=== PATIENT | female | born 1955 | race Caucasian/White ===

== ENCOUNTER 2019-10-22 17:46 | Emergency (ER) | payer OTHER ==
[2019-10-22] MEDS ORDERED: NA CHLORIDE 0.9% 1,000 ML ONE (18:51)
[2019-10-22] MEDS ORDERED: ACETAMINOPHEN 500 MG TAB ONE (18:51)
[2019-10-22 18:54] LABS: Absolute Lymphocytes (CBC) 0.5 K/uL (0.7-4.9); Basophils % 0.1 % (0-1.3); Hematocrit 35.2 % (36.0-45.0); MPV 9.6 fL (7.6-11.3); RBC Red Blood Cell Count 3.86 M/uL (3.86-4.86)
[2019-10-22 19:21] LABS: ALT/SGPT 23 U/L (12-78); AST/SGOT 23 U/L (15-37); Albumin 3.5 g/dL (3.4-5.0); Alkaline Phosphatase 68 U/L (45-117); Amylase Level 32 U/L (25-115); BUN Blood Urea Nitrogen 11 mg/dL (7-18); Bicarbonate 24 mmol/L (21-32); Bilirubin Direct 0.2 mg/dL (0-0.2); CKMB Creatine Kinase MB < 1.0 ng/mL (0.3-3.6); Creatine Phosphokinase 473 U/L (26-192); Glucose Level 129 mg/dL (74-106); Lipase 69 U/L (73-393); Potassium 3.6 mmol/L (3.5-5.1); Sodium Level 136 mmol/L (136-145); Troponin (Emerg Dept Use Only) < 0.02 ng/mL (0.0-0.045)
[2019-10-22 19:23] LABS: Protime INR 1.08
--- NOTE | 2019-10-22 19:45 | RAD REPORT ---
EXAM DESCRIPTION: RAD - Chest Single View - 10/22/2019 7:30 pm CLINICAL HISTORY: Fever;Cough COMPARISON: Chest exam October 2009 TECHNIQUE: AP portable chest image was obtained 10/22/2019 7:30 pm . FINDINGS: Medial right base patchy opacification is present. This was not present on the far remote imaging study. Lung hanson are otherwise clear. No failure or volume overload. Heart and vasculature are normal. No measurable pleural effusion and no pneumothorax. No acute bony abnormality seen. No ac sarah aortic findings suspected. IMPRESSION: Small medial right lung base pneumonia.
[2019-10-22] MEDS ORDERED: CEFTRIAXONE/SWI 1gm 1 GM/10 ML SYR ONE (19:55)
[2019-10-22] MEDS ORDERED: NA CHLORIDE 0.9% 250 ML ONE (19:55)
[2019-10-22] MEDS ORDERED: AZITHROMYCIN 500 MG INJ IVPB ONE (19:55)
[2019-10-22 20:00] LABS: Blood Morphology Comment NOTED (NOT SEEN); Platelet Estimate ADEQ; Urine White Blood Cell Casts OK
[2019-10-22 20:22] LABS: Urine Blood NEGATIVE (NEG); Urine Glucose NEGATIVE (NEG); Urine Protein NEGATIVE (NEG)
[2019-10-22 20:29] LABS: Urine Bacteria 20-50 /HPF (<20); Urine RBC <5 /HPF (NONE SEEN)
[2019-10-22 20:30] LABS: Urine Culture Reflex Order REFLEXED
--- NOTE | 2019-10-22 22:09 | ER ---
Nurse's Notes [facility] Name: Ladonna Campos Age: 64 yrs Sex: Female : 1955 Arrival Date: 10/22/2019 Time: 17:47 Bed 28 Private MD: Diagnosis: Pneumonia in diseases classified elsewhere;Fever, unspecified Presentation: 10/21 17:54 Acuity: FAITH 2 ss 18:07 Chief complaint: Patient states: Cough/congestion for 2 weeks, fever today. Came back ll1 from cruise to [place] Sep 14. came back with a cough. She began having cough for 2 weeks. Took almost all her amoxicillin. No known Jacinto virus contact. Coronavirus screen: The patient HAS traveled to a country currently being monitored by the CDC in the past 14 days. The patient DOES HAVE a fever and/or cough Mask placed on patient and transported to negative pressure isolation room. Ebola Screen: Patient reports travel to Ebola-affected area in the 21 days before illness onset. Initial Sepsis Screen: Does the patient meet any 2 criteria? Temp <36.0*C (96.8*F)) or > 38.3*C (100.9*F). HR > 90 bpm. Yes Does the patient have a suspected source of infection? Yes: Productive cough/pneumonia. Risk Assessment: Do you want to hurt yourself or someone else? Patient reports no desire to harm self or others. 18:07 Method Of Arrival: EMS 1 18:07 Acuity: FAITH 2 1 18:44 Onset of symptoms was October 09, 2019. [facility] Triage Assessment: 18:26 General: Appears uncomfortable, Behavior is calm, cooperative. Pain: Complains of pain [facility] in head Pain currently is 8 out of 10 on a pain scale. Quality of pain is described as aching, Pain began gradually. EENT: No deficits noted. Neuro: No deficits noted. Cardiovascular: No deficits noted. Respiratory: Airway is patent Trachea midline Respiratory effort is even, unlabored, Respiratory pattern is regular, symmetrical, Sputum is thick, yellow Breath sounds are clear in left upper lobe and left lower lobe Breath sounds are coarse in right posterior upper lobe and right posterior middle lobe Onset: The symptoms/episode began/occurred 2 weeks ago, the patient has moderate shortness of breath. GI: No deficits noted. Historical: - Allergies: 18:18 NKDA; ll1 18:18 lobster; ll1 - PMHx: 18:18 None; ll1 - PSHx: 18:18 ; ll1 - Immunization history:: Last tetanus immunization: unknown, Flu vaccine is not up to date. - Social history:: Patient/guardian denies using alcohol, street drugs, tobacco products, Smoking status: Patient denies any tobacco usage or history of. Screenin:22 Abuse screen: Denies threats or abuse. Nutritional screening: No deficits noted. ll1 Tuberculosis screening: No symptoms or risk factors identified. Fall Risk IV access (20 points). Ambulatory Aid- None/Bed Rest/Nurse Assist (0 pts). Gait- Weak (10 pts.). Total Garcia Fall Scale indicates Low Risk Score (25-44 pts). Fall prevention measures have been instituted. Side Rails Up X 2 As available Patient and Family Educated on Fall Prevention Program and strategies. Assessment: 18:46 General: Appears in no apparent distress. Behavior is calm, cooperative, see triage ll1 assessment for further details. 19:45 Reassessment: No changes from previously documented assessment. Patient and/or family ll1 updated on plan of care and expected duration. Pain level reassessed. Patient is alert, oriented x 3, equal unlabored respirations, skin warm/dry/pink. 20:45 Reassessment: No changes from previously documented assessment. Patient and/or family ll1 updated on plan of care and expected duration. Pain level reassessed. Patient is alert, oriented x 3, equal unlabored respirations, skin warm/dry/pink. 21:45 Reassessment: No changes from previously documented assessment. Patient and/or family ll1 updated on plan of care and expected duration. Pain level reassessed. Patient is alert, oriented x 3, equal unlabored respirations, skin warm/dry/pink. Vital Signs: 18:07 Height 5 ft. 8 in. (172.72 cm); Pain 8/10; ll1 18:07 BP 146 / 73; Pulse 115; Resp 18; Temp 102.0; Pulse Ox 98% ; Weight 84.82 kg; Height 5 ll1 ft. 8 in. (172.72 cm); 18:22 BP 134 / 79; Pulse 106; Resp 18; Pulse Ox 97% ; ll1 18:45 Temp 99.8(O); ll1 19:18 BP 129 / 70; Pulse 98; Resp 17; Pulse Ox 95% ; ll1 19:27 Pulse 99; Resp 17; Temp 100.1; ll1 22:24 BP 110 / 65; Pulse 77; Resp 18; Temp 98.2; Pulse Ox 97% ; Pain 0/10; ll1 18:07 Body Mass Index 28.43 (84.82 kg, 172.72 cm) ll1 ED Course: 16:35 Inserted saline lock: 18 gauge in left antecubital area, using aseptic technique. ll1 ,using aseptic technique. started by EMS DIALS SUPERVISOR Blood collected. 17:47 Patient arrived in ED. kl 17:53 Carlos Alberto Morris FNP-C is PHCP. la1 17:53 Bryson Shaw MD is Attending Physician. la1 17:54 Triage completed. ss 18:07 Joanna Askew, DOMINGO is Primary Nurse. ll1 18:19 Arm band placed on Patient placed in an exam room, on pulse oximetry. ll1 18:25 Patient has correct armband on for positive identification. Bed in low position. Call ll1 light in reach. Side rails up X2. Pulse ox on. NIBP on. 19:21 No provider procedures requiring assistance completed. ll1 19:30 Chest Single View XRAY In Process Unspecified. EDMS 22:27 IV discontinued, intact, bleeding controlled, No redness/swelling at site. Pressure ll1 dressing applied. Administered Medications: 18:50 Drug: Tylenol 1000 mg Route: PO; ll1 22:26 Follow up: Response: No adverse reaction; Temperature is decreased ll1 22:27 Follow up: Response: No adverse reaction; Temperature is decreased ll1 19:07 Drug: NS 0.9% 1000 ml Route: IV; Rate: 1000 ml; Site: left antecubital; ll1 22:27 Follow up: Response: No adverse reaction; RASS: Alert and Calm (0); IV Status: ll1 Completed infusion 20:11 Drug: Rocephin 1 grams Route: IV; Rate: calculated rate; Site: left antecubital; dm5 22:26 Follow up: Response: No adverse reaction; IV Status: Completed infusion ll1 20:11 Drug: Zithromax 500 mg Route: IVPB; Infused Over: 1 hrs; Site: left antecubital; dm5 22:25 Follow up: Response: No adverse reaction; RASS: Alert and Calm (0); IV Status: ll1 Completed infusion Outcome: 22:07 Discharge ordered by . la1 22:28 Discharged to home ambulatory, with family. ll1 22:28 Condition: improved 22:28 Discharge instructions given to patient, Instructed on discharge instructions, follow up and referral plans. medication usage, Demonstrated understanding of instructions, follow-up care, medications, Prescriptions given X 1. 22:29 Patient left the ED. ll1 Addendum: 10/26/2019 19:32 Addendum: Culture Results: Positive urine culture. Bacteria is resistant to, has s s intermediate sensitivity, or is not tested against prescribed antibiotics. Report given to SASKIA for further evaluation and then to hostler helper for follow up with patient. Phone call Attempt #1 Pt reports she is feeling much better after her visit in the ED and plans to follow up with her PCP soon. Signatures: Dispatcher [employer] EDMS Yoon Askew RN RN kl Markwardt, Deana, RN RN dm5 Smirch, Shelby, RN RN ss Carlos Alberto Morris, PHYSICAL METALLURGIST-C PHYSICAL METALLURGIST-Cla1 Joanna Askew RN RN ll1 Corrections: (The following items were deleted from the chart) 10/21 18:43 18:07 BP 146 / 73; Pulse 115bpm; Resp 18bpm; Pulse Ox 98%; Temp 102.0F; 84.82 kg; ll1 Height 5 ft. 8 in.; BMI: 28.4; ll1 18:44 18:22 BP 134 / 79; Pulse 106bpm; Resp 18bpm; Temp 97F; ll1 ll1
--- NOTE | 2019-10-22 22:09 | EDPHYS ---
Physician Documentation [facility] Name: Ladonna Campos Age: 64 yrs Sex: Female : 1955 Arrival Date: 10/22/2019 Time: 17:47 Bed 28 Private MD: ED Physician Bryson Shaw HPI: 10/21 19:13 This 64 yrs old Female presents to ER via EMS with complaints of fever, cough.la1 19:13 The patient or guardian reports cough, described as moderate. Onset: The la1 symptoms/episode began/occurred 1 week(s) ago. Modifying factors: The symptoms are alleviated by nothing. the symptoms are aggravated by nothing. Associated signs and symptoms: Pertinent positives: fever, laryngitis. Severity of symptoms: At their worst the symptoms were moderate in the emergency department the symptoms are unchanged. The patient has not experienced similar symptoms in the past. Pt went on a cruise to [facility] and [facility] in late August, and others became ill towards the end of the trip but she was ok, when they got back was given a z-pack for supposed bronchitis. Pt was still feeling fine. 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 Historical: - Allergies: 18:18 NKDA; ll1 18:18 lobster; ll1 - PMHx: 18:18 None; ll1 - PSHx: 18:18 ; ll1 - Immunization history:: Last tetanus immunization: unknown, Flu vaccine is not up to date. - Social history:: Patient/guardian denies using alcohol, street drugs, tobacco products, Smoking status: Patient denies any tobacco usage or history of. ROS: 19:15 Eyes: Negative for injury, pain, redness, and discharge, ENT: Negative for injury, la1 pain, and discharge, Neck: Negative for injury, pain, and swelling, Cardiovascular: Negative for chest pain, palpitations, and edema. 19:15 Abdomen/GI: Negative for abdominal pain, nausea, vomiting, diarrhea, and constipation, Back: Negative for injury and pain, MS/Extremity: Negative for injury and deformity, Skin: Negative for injury, rash, and discoloration. 19:15 Constitutional: Positive for chills, fatigue, fever, malaise. 19:15 Eyes: 19:15 Respiratory: Positive for cough, Negative for dyspnea on exertion, hemoptysis, orthopnea, pleurisy, shortness of breath, sputum production. Exam: 19:16 Constitutional: This is a well developed, well nourished patient who is awake, alert, la1 and in no acute distress. Head/Face: Normocephalic, atraumatic. ENT: Nares patent. No nasal discharge, no septal abnormalities noted. Tympanic membranes are normal and external auditory canals are clear. Oropharynx with no redness, swelling, or masses, exudates, or evidence of obstruction, uvula midline. Mucous membranes moist. Neck: Trachea midline,Supple, full range of motion without nuchal rigidity, or vertebral point tenderness. No Meningismus. Chest/axilla: Normal chest wall appearance and motion. Nontender with no deformity. No lesions are appreciated. Cardiovascular: Regular rate and rhythm with a normal S1 and S2. No gallops, murmurs, or rubs. Normal PMI, no JVD. No pulse deficits. 19:16 Abdomen/GI: Soft, non-tender, with normal bowel sounds. No distension or tympany. No guarding or rebound. No evidence of tenderness throughout. 19:16 Respiratory: the patient does not display signs of respiratory distress, Respirations: normal, Breath sounds: rales, that are mild, bronchial sounds, that are mild, are heard in the right posterior middle lobe and right posterior lower lobe, Respiratory rate: 22 Vital Signs: 18:07 Height 5 ft. 8 in. (172.72 cm); Pain 8/10; ll1 18:07 BP 146 / 73; Pulse 115; Resp 18; Temp 102.0; Pulse Ox 98% ; Weight 84.82 kg; Height 5 ll1 ft. 8 in. (172.72 cm); 18:22 BP 134 / 79; Pulse 106; Resp 18; Pulse Ox 97% ; ll1 18:45 Temp 99.8(O); ll1 19:18 BP 129 / 70; Pulse 98; Resp 17; Pulse Ox 95% ; ll1 19:27 Pulse 99; Resp 17; Temp 100.1; ll1 22:24 BP 110 / 65; Pulse 77; Resp 18; Temp 98.2; Pulse Ox 97% ; Pain 0/10; ll1 18:07 Body Mass Index 28.43 (84.82 kg, 172.72 cm) ll1 MDM: 17:53 Patient medically screened. la1 20:58 Differential diagnosis: bronchitis, flu, URI, PNE, coronavirus. Data reviewed: vital la1 signs, nurses notes, lab test result(s), EKG, radiologic studies. Data interpreted: Pulse oximetry: on room air is 95 %. Interpretation: acceptable. Test interpretation: by ED physician or midlevel provider: ECG, plain radiologic studies. Counseling: I had a detailed discussion with the patient and/or guardian regarding: the historical points, exam findings, and any diagnostic results supporting the discharge/admit diagnosis, lab results, radiology results, the need for outpatient follow up, a family practitioner, to return to the emergency department if symptoms worsen or persist or if there are any questions or concerns that arise at home. ED course: pt has pneumonia on CXR, no resp distress, normal labs with exception of mild elevation in WBC. Discussed case with health department who stated that she does not meet criteria for testing unless she needs to be admitted for her pneumonia. Pt is stable at this time, no oxygen requirement. Will discharge and instruct to self quarantine for 14 days as instructed by health department with RX for ABX. Strict return precautions given, pt verbalizes understanding. 10/21 18:18 Order name: Amylase, Serum 10/21 18:18 Order name: Basic Metabolic Panel 10/21 18:18 Order name: Blood Culture Adult (2) 10/21 18:18 Order name: CBC with Diff 10/21 18:18 Order name: Ckmb; Complete Time: 19:26 10/21 18:18 Order name: CPK; Complete Time: 19:26 10/21 18:18 Order name: Lactate; Complete Time: 19:26 10/21 18:18 Order name: LFT's; Complete Time: 19:26 10/21 18:18 Order name: Lipase; Complete Time: 19:26 la10/21 18:18 Order name: Procalcitonin; Complete Time: 19:45 10/21 18:18 Order name: Protime (+inr); Complete Time: 19:45 10/21 18:18 Order name: Ptt, Activated; Complete Time: 19:45 [facility] 10/21 18:18 Order name: Troponin (emerg Dept Use Only); Complete Time: 19:26 [facility] 10/21 18:18 Order name: Urine Microscopic Only [facility] 10/21 18:18 Order name: Chest Single View XRAY; Complete Time: 19:46 [facility] 10/21 18:18 Order name: Cardiac monitoring; Complete Time: 22:30 [facility] 10/21 18:18 Order name: EKG - Nurse/Tech; Complete Time: 19:18 [facility] 10/21 18:18 Order name: IV Saline Lock - Large Bore; Complete Time: 18:50 [facility] 10/21 18:18 Order name: Labs collected and sent; Complete Time: 18:50 [facility] 10/21 18:18 Order name: Flu; Complete Time: 19:26 [facility] 10/21 18:21 Order name: Amylase Level; Complete Time: 19:26 [facility] 10/21 18:21 Order name: Basic Metabolic Panel; Complete Time: 19:26 [facility] 10/21 18:21 Order name: Blood Culture [facility] 10/21 20:00 Order name: CBC Smear Scan [facility] 10/21 20:18 Order name: Urine Dipstick--Ancillary (enter results) [facility] 10/21 20:32 Order name: Urine Culture [facility] 10/21 18:18 Order name: O2 Per Protocol; Complete Time: 22:30 [facility] 10/21 18:18 Order name: O2 Sat Monitoring; Complete Time: 19:18 [facility] 10/21 18:18 Order name: Urine Dipstick-Ancillary (obtain specimen); Complete Time: 22:30 [facility] Administered Medications: 18:50 Drug: Tylenol 1000 mg Route: PO; ll1 22:26 Follow up: Response: No adverse reaction; Temperature is decreased ll1 22:27 Follow up: Response: No adverse reaction; Temperature is decreased ll1 19:07 Drug: NS 0.9% 1000 ml Route: IV; Rate: 1000 ml; Site: left antecubital; ll1 22:27 Follow up: Response: No adverse reaction; RASS: Alert and Calm (0); IV Status: ll1 Completed infusion 20:11 Drug: Rocephin 1 grams Route: IV; Rate: calculated rate; Site: left antecubital; dm5 22:26 Follow up: Response: No adverse reaction; IV Status: Completed infusion ll1 20:11 Drug: Zithromax 500 mg Route: IVPB; Infused Over: 1 hrs; Site: left antecubital; 5 22:25 Follow up: Response: No adverse reaction; RASS: Alert and Calm (0); IV Status: ll1 Completed infusion Disposition: 10/22/19 22:07 Discharged to Home. Impression: Pneumonia in diseases classified elsewhere, Fever, unspecified. - Condition is Stable. - Discharge Instructions: Fever, Adult, Community-Acquired Pneumonia, Adult. - Prescriptions for Zithromax 500 mg Oral Tablet - take 1 tablet by ORAL route once daily for 5 days; 5 tablet. - Medication Reconciliation Form, Thank You Letter, Antibiotic Education form. - Follow up: Private Physician; When: 2 - 3 days; Reason: Recheck today's complaints, Re-evaluation by your physician. Follow up: Emergency Department; When: As needed; Reason: Worsening of condition. - Problem is new. - Symptoms have improved. Addendum: 10/24/2019 09:26 Co-signature as Attending Physician, Bryson Shaw MD I agree with the assessment and c ibrahim plan of care. Signatures: Dispatcher [employer] EDPamela Up, RN RN dm5 Bryson Shaw MD MD cha Attema, Lee, CUSTODIAL SERVICES MANAGER-C CUSTODIAL SERVICES MANAGER-Cla1 Joanna Askew RN RN ll1 Corrections: (The following items were deleted from the chart) 10/21 22:29 22:07 10/22/2019 22:07 Discharged to Home. Impression: Pneumonia in diseases classified ll1 elsewhere; Fever, unspecified. Condition is Stable. Discharge Instructions: Fever, Adult, Community-Acquired Pneumonia, Adult. Prescriptions for Zithromax 500 mg Oral Tablet - take 1 tablet by ORAL route once daily for 5 days; 5 tablet. and Forms are Medication Reconciliation Form, Thank You Letter, Antibiotic Education, Prescription Opioid Use. Follow up: Private Physician; When: 2 - 3 days; Reason: Recheck today's complaints, Re-evaluation by your physician. Follow up: Emergency Department; When: As needed; Reason: Worsening of condition. Problem is new. Symptoms have improved. la1
[2019-10-22 22:51] VITALS: BP 110/65; TEMP 98.2; O2SAT 97
--- NOTE | 2019-10-24 06:56 | EKG ---
Test Date: 2019-10-22 Test Time: 19:02:35 Wind Tunnel Engineer: XIANG MEASUREMENT RESULTS: Intervals: Rate: 101 OK: 164 QRSD: 88 QT: 356 QTc: 461 [place]: P: 57 OK: 164 QRS: 12 T: 32 INTERPRETIVE STATEMENTS: Sinus tachycardia Otherwise normal ECG No previous ECG available for comparison Electronically Signed On 10-24-19 06:55:02 CDT by Jus Angelo
== END 2019-10-22 22:29 | disposition home or self-care (01) ==
LOC: ER 17:46
DX: J18.9 Pneumonia, unspecified organism (principal); Z91.013 Allergy to seafood
CPT/HCPCS: 96365; 96361; 96368; 93005; 87040 ×2; 87088; 85025; 87086; 80048; 36415; 82150; 82550; 85610; 80076; 83605; 85730; 87077; 87186; 84484; 82553; 83690; 84145; 87804 ×2; 71045; 99284; 96366; J0456; J0696; J7030 ×2; 81003; 81015

== ENCOUNTER 2020-03-25 07:06 | Observation (INO) | payer OTHER ==
[2020-03-25 08:00] LABS: Absolute Lymphocytes (CBC) 0.9 K/uL (0.7-4.9); Basophils % 0.3 % (0-1.3); Lymphocytes % 8.3 % (15.3-44.8); MPV 9.3 fL (7.6-11.3)
[2020-03-25 08:01] LABS: Protime INR 0.94
[2020-03-25] MEDS ORDERED: MORPHINE 2 MG/ML SYR ONE ×2 (08:05→12:24)
[2020-03-25] MEDS ORDERED: ONDANSETRON 4 MG/2 ML VIAL ONE (08:05)
[2020-03-25 08:18] LABS: ALT/SGPT 26 U/L (12-78); AST/SGOT 20 U/L (15-37); Albumin 3.8 g/dL (3.4-5.0); Alkaline Phosphatase 82 U/L (45-117); BUN Blood Urea Nitrogen 17 mg/dL (7-18); Bicarbonate 25 mmol/L (21-32); Bilirubin Direct 0.2 mg/dL (0-0.2); Bilirubin Total 0.5 mg/dL (0.2-1.0); Glucose Level 126 mg/dL (74-106); Magnesium 2.1 mg/dL (1.8-2.4); NT PRO-BNP 120 pg/mL (<125); Potassium 3.8 mmol/L (3.5-5.1); Protein, Total 7.3 g/dL (6.4-8.2); Sodium Level 140 mmol/L (136-145); Troponin (Emerg Dept Use Only) < 0.02 ng/mL (0.0-0.045)
[2020-03-25 08:48] LABS: Blood Morphology Comment NOT SEEN (NOT SEEN); Platelet Estimate ADEQ
--- NOTE | 2020-03-25 09:06 | ER ---
Nurse's Notes [facility] [place], [place] Name: Ladonna Campos Age: 64 yrs Sex: Female : 1955 Arrival Date: 03/25/2020 Time: 07:08 Bed 19 Private MD: Diagnosis: Chest pain, unspecified Presentation: 03/25 07:17 Chief complaint: Substernal chest pain 6/10 that woke her from sleep at 0400 today. hb Denies nausea/SOB. Coronavirus screen: At this time, the client does not indicate any symptoms associated with coronavirus-19. Ebola Screen: No symptoms or risks identified at this time. Initial Sepsis Screen: Does the patient meet any 2 criteria? No. Patient's initial sepsis screen is negative. Does the patient have a suspected source of infection? No. Patient's initial sepsis screen is negative. Risk Assessment: Do you want to hurt yourself or someone else? Patient reports no desire to harm self or others. Onset of symptoms was March 25, 2020 at 04:00. 07:17 Method Of Arrival: Ambulatory 07:17 Acuity: FAITH 3 hb Triage Assessment: 07:20 General: Appears in no apparent distress. Behavior is calm, cooperative. Pain: Pain hb currently is 6 out of 10 on a pain scale. EENT: No signs and/or symptoms were reported regarding the EENT system. Neuro: Level of Consciousness is awake, alert, obeys commands, Oriented to person, place, time, situation. Cardiovascular: Patient's skin is warm and dry. Respiratory: Respiratory effort is even, unlabored, Respiratory pattern is regular, symmetrical. GI: No signs and/or symptoms were reported involving the gastrointestinal system. : No signs and/or symptoms were reported regarding the genitourinary system. Derm: Skin is pink, warm \\T\\ dry. Musculoskeletal: No signs and/or symptoms reported regarding the musculoskeletal system. Historical: - Allergies: 07:20 LOBSTER; hb 07:20 NKDA; hb - Home Meds: 07:20 None [Active]; hb - PMHx: 07:20 None; hb - PSHx: 07:20 ; hb - Immunization history:: Adult Immunizations up to date. - Social history:: Smoking status: Patient denies any tobacco usage or history of. Screenin:21 Abuse screen: Denies threats or abuse. Denies injuries from another. Nutritional hb screening: No deficits noted. Tuberculosis screening: No symptoms or risk factors identified. Fall Risk None identified. Assessment: 07:21 General: SEE TRIAGE. hb 08:45 Reassessment: Patient appears in no apparent distress at this time. Patient and/or em family updated on plan of care and expected duration. Pain level reassessed. Patient is alert, oriented x 3, equal unlabored respirations, skin warm/dry/pink. rates pain is 3/10, pending lab results. 10:00 Reassessment: Patient appears in no apparent distress at this time. Patient and/or em family updated on plan of care and expected duration. Pain level reassessed. Patient is alert, oriented x 3, equal unlabored respirations, skin warm/dry/pink. 11:18 Reassessment: Patient appears in no apparent distress at this time. Patient and/or em family updated on plan of care and expected duration. Pain level reassessed. Patient is alert, oriented x 3, equal unlabored respirations, skin warm/dry/pink. 11:43 Reassessment: attempted to give report, unable to give report at this time. em 12:13 Reassessment: reports chest pain is coming back, rates pain "uncomfortable" unable to em give it a number, will repeat morphine 2 mg IVP x 1. Vital Signs: 07:17 BP 127 / 67; Pulse 81; Resp 16; Temp 97.8; Pulse Ox 100% on R/A; Weight 85.28 kg; hb Height 5 ft. 8 in. (172.72 cm); Pain 6/10; 08:50 BP 114 / 63; Pulse 71; Resp 18; Pulse Ox 99% on R/A; Pain 3/10; em 10:00 BP 128 / 66; Pulse 77; Resp 18; Pulse Ox 99% on R/A; em 11:18 BP 115 / 64; Pulse 67; Resp 18; Pulse Ox 99% on R/A; em 07:17 Body Mass Index 28.59 (85.28 kg, 172.72 cm) hb ED Course: 07:08 Patient arrived in ED. ds1 07:11 Lobo Álvarez NP is PHCP. pm1 07:11 Oz Nicholson MD is Attending Physician. pm1 07:11 Que Romero, RN is Primary Nurse. em 07:14 Mitul Lopez MD is Attending Physician. pm1 07:20 Triage completed. hb 07:20 Arm band placed on. hb 07:21 Patient has correct armband on for positive identification. Placed in gown. Bed in low hb position. Call light in reach. softball coach on. Pulse ox on. NIBP on. 07:35 Patient maintains SpO2 saturation greater than 95% on room air. hb 07:48 Inserted saline lock: 20 gauge in right antecubital area, using aseptic technique. hb Blood collected. 08:22 XRAY Chest (1 view) In Process Unspecified. EDMS 09:06 Butch Galindo DO is Hospitalizing Provider. pm1 12:50 No provider procedures requiring assistance completed. Patient admitted, IV remains in em place. Administered Medications: 08:01 Drug: morphine 2 mg Route: IVP; Site: right antecubital; hb 08:50 Follow up: Response: No adverse reaction; Marked relief of symptoms; Pain is decreased; em RASS: Alert and Calm (0) 08:01 Drug: Zofran (Ondansetron) 4 mg Route: IVP; Site: right antecubital; hb 08:50 Follow up: Response: No adverse reaction em 10:20 Drug: XANax Tablet 0.25 mg Route: PO; em 11:44 Follow up: Response: No adverse reaction; Marked relief of symptoms; Anxiety decreased em 12:17 Drug: morphine 2 mg Route: IVP; Site: right antecubital; em 12:52 Follow up: Response: No adverse reaction; Marked relief of symptoms; Pain is decreased; em RASS: Alert and Calm (0) Outcome: 09:06 Decision to Hospitalize by Provider. pm1 12:50 Admitted to Tele accompanied by tech, via wheelchair, room 216, with chart, Report em called to DOMINGO Cohen 12:50 Condition: good 12:50 Instructed on the need for admit, Demonstrated understanding of instructions. 13:04 Patient left the ED. em Signatures: Dispatcher [employer] EDWA Que Romero, RN RN em Karen Wren ds1 Lobo Álvarez, SARAH DIETETICS DIRECTOR pm1 Kesha Francis RN RN hb
--- NOTE | 2020-03-25 09:06 | EDPHYS ---
[facility] Name: Ladonna Campos Age: 64 yrs Sex: Female : 1955 Arrival Date: 03/25/2020 Time: 07:08 Bed 19 Private MD: ED Physician Mitul Lopez HPI: 03/25 07:16 This 64 yrs old Female presents to ER via Ambulatory with complaints of Chest pm1 Pain. 07:16 The patient or guardian reports chest pain that is located primarily in the mid-sternal pm1 area. Onset: Woke up the patient at 0400. The pain does not radiate. Associated signs and symptoms: Pertinent negatives: abdominal pain, cough, diaphoresis, dizziness, headache, nausea, palpitations, shortness of breath, vomiting. The chest pain is described as a pressure. Duration: The patient or guardian reports a single episode, that is still ongoing, but improving. Modifying factors: The symptoms are alleviated by nothing. the symptoms are aggravated by deep breath, palpation of area. Severity of pain: At its worst the pain was moderate lasted for 3 hours, in the emergency department the pain has improved. The patient has not experienced similar symptoms in the past. The patient has not recently seen a physician, the patient's primary care provider is Dr. Peter. Patient took multiple aspirin prior to arrival. At onset of pain at 4 she took 2 x 325 mg and then prior to arrival took 3 x 325 mg. Historical: - Allergies: 07:20 LOBSTER; hb 07:20 NKDA; hb - Home Meds: 07:20 None [Active]; hb - PMHx: 07:20 None; hb - PSHx: 07:20 ; hb - Immunization history:: Adult Immunizations up to date. - Social history:: Smoking status: Patient denies any tobacco usage or history of. ROS: 07:21 Constitutional: Negative for fever, chills, and weight loss, Neck: Negative for injury, pm1 pain, and swelling. 07:21 Respiratory: Negative for shortness of breath, cough, wheezing, and pleuritic chest pain, Abdomen/GI: Negative for abdominal pain, nausea, vomiting, diarrhea, and constipation, Back: Negative for injury and pain, MS/Extremity: Negative for injury and deformity, Skin: Negative for injury, rash, and discoloration, Neuro: Negative for headache, weakness, numbness, tingling, and seizure. 07:21 Cardiovascular: Positive for chest pain, Negative for edema, orthopnea, palpitations. Exam: 07:21 Constitutional: This is a well developed, well nourished patient who is awake, alert, pm1 and in no acute distress. Head/Face: Normocephalic, atraumatic. 07:21 Cardiovascular: Regular rate and rhythm with a normal S1 and S2. No gallops, murmurs, or rubs. Normal PMI, no JVD. No pulse deficits. Respiratory: Lungs have equal breath sounds bilaterally, clear to auscultation and percussion. No rales, rhonchi or wheezes noted. No increased work of breathing, no retractions or nasal flaring. Abdomen/GI: Soft, non-tender, with normal bowel sounds. No distension or tympany. No guarding or rebound. No evidence of tenderness throughout. Back: No spinal tenderness. No costovertebral tenderness. Full range of motion. Skin: Warm, dry with normal turgor. Normal color with no rashes, no lesions, and no evidence of cellulitis. MS/ Extremity: Pulses equal, no cyanosis. Neurovascular intact. Full, normal range of motion. 07:21 Chest/axilla: Inspection: normal, Palpation: tenderness, that is mild, of the mid-sternal area. 07:21 Neuro: Exam negative for acute changes, Orientation: is normal, Mentation: is normal, Motor: is normal, moves all fours, Sensation: is normal, no obvious gross deficits. Vital Signs: 07:17 BP 127 / 67; Pulse 81; Resp 16; Temp 97.8; Pulse Ox 100% on R/A; Weight 85.28 kg; hb Height 5 ft. 8 in. (172.72 cm); Pain 6/10; 08:50 BP 114 / 63; Pulse 71; Resp 18; Pulse Ox 99% on R/A; Pain 3/10; em 10:00 BP 128 / 66; Pulse 77; Resp 18; Pulse Ox 99% on R/A; em 11:18 BP 115 / 64; Pulse 67; Resp 18; Pulse Ox 99% on R/A; em 07:17 Body Mass Index 28.59 (85.28 kg, 172.72 cm) hb MDM: 07:11 Patient medically screened. pm1 07:38 ED course: No aspirin given in the ER. Patient took 5 tabs of Aspirin 325 mg prior to pm1 arrival. 08:30 Data reviewed: vital signs. Data interpreted: Pulse oximetry: on room air is 100 %. pm1 Interpretation: normal. 08:59 Counseling: I had a detailed discussion with the patient and/or guardian regarding: the pm1 historical points, exam findings, and any diagnostic results supporting the discharge/admit diagnosis, lab results, radiology results, the need for further work-up and treatment in the hospital. 09:33 Physician consultation: Butch Galindo DO and will see patient in ED. pm1 09:52 ED course: Heart score = 3. pm1 03/25 07:14 Order name: Basic Metabolic Panel; Complete Time: 08:19 pm1 03/25 07:14 Order name: CBC with Diff; Complete Time: 08:51 pm1 03/25 07:14 Order name: LFT's; Complete Time: 08:19 pm1 03/25 07:14 Order name: Magnesium; Complete Time: 08:19 pm1 03/25 07:14 Order name: NT PRO-BNP; Complete Time: 08:19 pm1 03/25 07:14 Order name: PT-INR; Complete Time: 08:04 pm1 03/25 07:14 Order name: Troponin (emerg Dept Use Only); Complete Time: 08:19 pm1 03/25 07:14 Order name: XRAY Chest (1 view); Complete Time: 12:56 pm1 03/25 07:14 Order name: EKG; Complete Time: 07:15 pm1 03/25 07:14 Order name: Cardiac monitoring; Complete Time: 07:50 pm1 03/25 08:48 Order name: Manual Differential; Complete Time: 08:51 EDMS 03/25 07:14 Order name: EKG - Nurse/Tech; Complete Time: 07:50 pm1 03/25 07:14 Order name: IV Saline Lock; Complete Time: 07:50 pm1 03/25 07:14 Order name: Labs collected and sent; Complete Time: 07:50 pm1 03/25 07:14 Order name: O2 Per Protocol; Complete Time: 07:50 pm1 03/25 07:14 Order name: O2 Sat Monitoring; Complete Time: 07:50 pm1 Administered Medications: 08:01 Drug: morphine 2 mg Route: IVP; Site: right antecubital; hb 08:50 Follow up: Response: No adverse reaction; Marked relief of symptoms; Pain is decreased; em RASS: Alert and Calm (0) 08:01 Drug: Zofran (Ondansetron) 4 mg Route: IVP; Site: right antecubital; hb 08:50 Follow up: Response: No adverse reaction em 10:20 Drug: XANax Tablet 0.25 mg Route: PO; em 11:44 Follow up: Response: No adverse reaction; Marked relief of symptoms; Anxiety decreased em 12:17 Drug: morphine 2 mg Route: IVP; Site: right antecubital; em 12:52 Follow up: Response: No adverse reaction; Marked relief of symptoms; Pain is decreased; em RASS: Alert and Calm (0) Disposition: 18:22 Co-signature as Attending Physician, Mitul Lopez MD. ma2 Disposition: 03/25/20 09:06 Hospitalization ordered by Butch Galindo for Observation. Preliminary diagnosis is Chest pain, unspecified. - Bed requested for Telemetry/MedSurg (observation). - Status is Observation. em - Condition is Stable. - Problem is new. - Symptoms have improved. Signatures: Dispatcher [employer] Shanon Berrios RN DOMINGO Que Romero RN RN em Lobo Álvarez, SARAH ICE GRINDER pm1 Kesha Francis RN RN Mitul Lopez MD MD sc2 Corrections: (The following items were deleted from the chart) 11:38 09:06 Hospitalization Ordered by Butch Galindo DO for Observation. Preliminary dw diagnosis is Chest pain, unspecified. Bed requested for Telemetry/MedSurg (observation). Status is Observation. Condition is Stable. Problem is new. Symptoms have improved. pm1 13:04 11:38 03/25/2020 09:06 Hospitalization Ordered by Butch Galindo DO for Observation. em Preliminary diagnosis is Chest pain, unspecified. Bed requested for Telemetry/MedSurg (observation). Status is Observation. Condition is Stable. Problem is new. Symptoms have improved. dw
--- NOTE | 2020-03-25 10:04 | P.HP ---
Certification for Inpatient Patient admitted to: Observation With expected LOS: <2 Midnights Patient will require the following post-hospital care: None Practitioner: I am a practitioner with admitting privileges, knowledge of patient current condition, hospital course, and medical plan of care. Services: Services provided to patient in accordance with Admission requirements found in Title 42 Section 412.3 of the Code of Federal Regulations Patient History Date of Service: 03/25/20 Primary Care Provider: Dr. Peter Reason for admission: Chest pain History of Present Illness: 64-year-old female without major medical problems presented to the emergency room with chest pain. Patient reported chest pain when she woke up early today. She denied any significant shortness of breath, nausea or vomiting or flushing. Pain persisted. She did take some aspirin without relief. She decided to come to the ER for further evaluation. In the ER vital signs stable. EKG shows no significant ST changes. White count 10.6, hemoglobin 12.5. Sodium 140, potassium 3.8. BUN 17, creatinine 1.02 with a GFR 55. Glucose 126. Chest x-ray unremarkable. Patient given morphine in the ER with relief of pain. Patient admitted for further evaluation. When I saw the patient ER, she appeared comfortable. No chest pain noted. Patient had been doing some activities with her a friend yesterday putting up curtains. Patient reports mild reflux but no nausea, vomiting. There is a family history of strong heart disease with the father having an SD in his 70s. Brother has history of diabetes, heart disease and hyperlipidemia. She does not smoke. She drinks socially. Home medications list reviewed: Yes - Past Medical/Surgical History Past Medical History: Patient denies medical history -: 3 C-sections Psychosocial/ Personal History: Patient lives at home - Family History Father -: Heart disease, Hypertension Brother -: Heart disease, Hypertension, Diabetes - Social History Smoking Status: Never smoker Alcohol use: Yes CD- Drugs: No Caffeine use: Yes Place of Residence: Home Review of Systems General: Unremarkable Eyes: Unremarkable ENT: Unremarkable Respiratory: Unremarkable Cardiovascular: Chest Pain, As per HPI Gastrointestinal: Unremarkable Genitourinary: Unremarkable Musculoskeletal: Unremarkable Integumentary: Unremarkable Neurological: Unremarkable Lymphatics: Unremarkable Physical Examination - Physical Exam General: Alert, In no apparent distress, Oriented x3, Cooperative HEENT: Atraumatic, Normocephalic, PERRLA, Mucous membr. moist/pink Neck: Supple, No Thyromegaly Respiratory: Clear to auscultation bilaterally, Normal air movement Cardiovascular: Normal pulses, Regular rate/rhythm Gastrointestinal: Normal bowel sounds, Soft and benign, Non-distended, No tenderness, No masses, No rebound, No guarding Musculoskeletal: No erythema, No tenderness, No warmth Integumentary: No tenderness/swelling, No erythema, No warmth, No cyanosis Neurological: Normal speech, Normal strength at 5/5 x4 extr, Normal tone, Normal affect - Studies Laboratory Data (last 24 hrs) 03/25/20 07:47: PT 11.1, INR 0.94 03/25/20 07:47: WBC 10.6, Hgb 12.5, Hct 37.0, Plt Count 187 03/25/20 07:47: Sodium 140, Potassium 3.8, BUN 17, Creatinine 1.02, Glucose 126 H, Magnesium 2.1, Total Bilirubin 0.5, AST 20, ALT 26, Alkaline Phosphatase 82 Assessment and Plan - Plan Impression: Chest pain with family hx of CAD/HTN Suspect GERD Plan: Chest pain with family hx of CAD/HTN: Will admit the patient, monitor and observe closely. Will continue to monitor cardiac enzymes and telemetry. Will continue with ASA, Lipitor and provide Morphine for pain. Case discussed with Cardiology. Cardiology will evaluate and consider inpatient vs outpatient evaluation. He will also consider heart catheterization tomorrow especially with family history. Will provide DVT prophylaxis. Anticipate improvement in 24 hours with possible discharge after cardiac evaluation. Will test for COVID. Suspect GERD: Will provide protonix. Discharge Plan: Home Plan to discharge in: 24 Hours - Advance Directives Does patient have a Living Will: No Does patient have a Durable POA for Healthcare: No - Code Status/Comfort Care Code Status Assessed: Yes (Full code) Time Spent Managing Pts Care (In Minutes): 50
[2020-03-25] MEDS ORDERED: ALPRAZOLAM 0.25 MG TABLET ONE (10:27)
--- NOTE | 2020-03-25 11:22 | RAD REPORT ---
EXAM DESCRIPTION: Rafa Single View03/25/2020 8:22 am CLINICAL HISTORY: Chest pain COMPARISON: October 2019 FINDINGS: The lungs appear clear of acute infiltrate. The heart is normal size IMPRESSION: No acute abnormalities displayed
[2020-03-25 13:40] VITALS: BMI 28.5
[2020-03-25] MEDS ORDERED: ONDANSETRON 4 MG/2 ML VIAL IV PRN (13:56)
[2020-03-25] MEDS ORDERED: ACETAMINOPHEN 500 MG TAB PO PRN (13:56)
[2020-03-25] MEDS ORDERED: TRAMADOL HCL 50 MG TAB PO PRN (13:56)
[2020-03-25] MEDS ORDERED: ALPRAZOLAM 0.25 MG TABLET PO PRN (13:56)
[2020-03-25] MEDS ORDERED: MORPHINE 2 MG/ML SYR IV PRN (13:56)
[2020-03-25 15:22] LABS: CKMB Creatine Kinase MB 1.8 ng/mL (0.3-3.6); Creatine Phosphokinase 126 U/L (26-192); Troponin I < 0.02 ng/mL (0.0-0.045)
[2020-03-25] MEDS: ENOXAPARIN 40 MG/0.4 ML SQ SCH (16:30)
[2020-03-25] MEDS ORDERED: POTASSIUM CL SA 10 MEQ TAB PO ONE (18:00)
--- NOTE | 2020-03-25 20:35 | CON ---
Date of Consultation: 03/25/2020 Reason For Consultation: Chest pain. History Of Present Illness: Ms. Campos is a 64-year-old woman, who is very healthy. She does not h ave diabetes, hypertension, cholesterol. She does not smoke. She does have a family history of hear t disease in her dad in his 70s and her brother in his 40s. Her brother is a patient of mine. She b asically woke up with substernal chest pain described as ache, that has lasted for few hours. It was pleuritic and would get worse when she takes a deep breath. No nausea, vomiting, diaphoresis, PND, orthopnea, pedal edema, palpitations, or syncope. She had denied any fever, chills, or cough. Her p ain was definitely not exertional. It lasted for few hours, but yet she had a normal EKG, normal tro ponin, normal chest x-ray. Her symptoms have resolved now. Symptoms have resolved with morphine. Past Medical History: Negative. Allergies: SHE IS ALLERGIC TO SHELLFISH. Review of Systems: Negative. Social History: Negative. Family History: As stated above. Medications: At home are none. Physical Examination: As per Dr. Galindo in the emergency room was within normal limit. She is in sinus rhythm. Diagnostic Data: All within normal limit. Impression And Plan: Atypical chest pain, most likely pleuritic in nature. The patient had done josr e significant physical activities the day before, trying to hang some curtains with her friends. Cer tainly, the symptoms could be musculoskeletal as well. She does not have any symptoms or signs that are suggestive of pericarditis or coronary artery disease. Her EKG, chest x-ray, CPK, MB, and tropon in are negative. I am comfortable with her having a stress test before we make any further decisions . She wants to have it while she is still in the hospital and I will order that for the morning. I suggested that if her stress test is negative, she can go home on nonsteroidal anti-inflammatory agen t and if her symptoms persist, for her to call back. THU/LUPE Voice ID: [id number] Report ID: [id number]
[2020-03-25] MEDS ORDERED: ATORVASTATIN 40 MG TAB PO SCH (21:00)
[2020-03-25 22:28] LABS: CKMB Creatine Kinase MB < 1.0 ng/mL (0.3-3.6); Creatine Phosphokinase 97 U/L (26-192); Troponin I < 0.02 ng/mL (0.0-0.045)
[2020-03-26 04:24] LABS: Absolute Lymphocytes (CBC) 1.8 K/uL (0.7-4.9); Basophils % 0.3 % (0-1.3); Hematocrit 35.9 % (36.0-45.0); Lymphocytes % 26.7 % (15.3-44.8); MPV 9.2 fL (7.6-11.3); RBC Red Blood Cell Count 3.87 M/uL (3.86-4.86)
[2020-03-26 04:49] LABS: Magnesium 2.5 mg/dL (1.8-2.4); Potassium 4.3 mmol/L (3.5-5.1); Thyroid Stimulating Hormone 2.51 uIU/mL (0.360-3.740)
[2020-03-26] MEDS ORDERED: NA CHLORIDE 0.9% 500 ML IV ONE (05:20)
[2020-03-26] MEDS ORDERED: PANTOPRAZOLE 40MG TABLET PO SCH (07:30)
[2020-03-26] MEDS ORDERED: REGADENOSON 0.4 MG/5 ML SYR IV ONE (08:42)
[2020-03-26] MEDS: ENOXAPARIN 40 MG/0.4 ML SQ SCH (09:00)
[2020-03-26] MEDS ORDERED: ASPIRIN EC 81 MG TAB PO SCH (09:00)
--- NOTE | 2020-03-26 10:31 | RAD REPORT ---
EXAM DESCRIPTION: NM - Rest Stress Cardiac Imaging - 03/26/2020 9:54 am CLINICAL HISTORY: Chest pain. COMPARISON: None. TECHNIQUE: The patient was administered approximately 10mCi of Tc 99m Sestamibi prior to resting SPE CT imaging of the heart. The patient was then administered approximately 30 mCi of Tc 99m Sestamibi f ollowing exercise or pharmacologic stress. Multiplanar SPECT images were reviewed. FINDINGS: There is uniformity of radiotracer uptake involving the entire left ventricular myocardiu m on rest and stress images. The left ventricular ejection fraction equals 64% IMPRESSION: Negative for a myocardial perfusion defect
[2020-03-26 10:35] VITALS: O2SAT 96
--- NOTE | 2020-03-26 11:07 | P.DS ---
Admission Date: 03/25/20 Discharge Date: 03/26/20 Primary Care Provider: Dr. Peter Disposition: ROUTINE DISCHARGE Discharge Condition: GOOD Reason for Admission: Chest pain Consultations: Cardiology-Dr. Angelo Procedures: CXR: COMPARISON: October 2019 FINDINGS: The lungs appear clear of acute infiltrate. The heart is normal size IMPRESSION: No acute abnormalities displayed Cardiac stress test: FINDINGS: There is uniformity of radiotracer uptake involving the entire left ventricular myocardium on rest and stress images. The left ventricular ejection fraction equals 64% IMPRESSION: Negative for a myocardial perfusion defect Medical Problem List: Chest pain with family hx of CAD/HTN, atypical with negative cardiac stress test Suspect GERD Mild renal insufficiency likely dehydration Brief History of Present Illness: 64-year-old female without major medical problems presented to the emergency room with chest pain. Patient reported chest pain when she woke up early today. She denied any significant shortness of breath, nausea or vomiting or flushing. Pain persisted. She did take some aspirin without relief. She decided to come to the ER for further evaluation. In the ER vital signs stable. EKG shows no significant ST changes. White count 10.6, hemoglobin 12.5. Sodium 140, potassium 3.8. BUN 17, creatinine 1.02 with a GFR 55. Glucose 126. Chest x-ray unremarkable. Patient given morphine in the ER with relief of pain. Patient admitted for further evaluation. When I saw the patient ER, she appeared comfortable. No chest pain noted. Patient had been doing some activities with her a friend yesterday putting up curtains. Patient reports mild reflux but no nausea, vomiting. There is a family history of strong heart disease with the father having an PA in his 70s. Brother has history of diabetes, heart disease and hyperlipidemia. She does not smoke. She drinks socially. Hospital Course: Patient presented with chest pain. Cardiac enzymes unremarkable. No significant EKG changes noted. Patient seen by Cardiology. Patient had cardiac stress test which showed no stress-induced ischemia. Normal ejection fraction noted. Chest pain likely atypical and pleuritic in nature. At discharge she may take ibuprofen 400 mg 3 times a day as needed for pain. Patient may also take Tylenol as needed for pain. Recommend follow up with cardiology if chest pain persists. Patient likely with underlying GERD. Patient may take over the counter Prilosec or Pepcid. If patient with increased heartburn recommend follow up with GI to further monitor and address. Mild renal insufficiency noted. Likely mild dehydration. Encourage oral intake. Recommend to recheck lab-BMP in 1-2 weeks to monitor her progress. Vital Signs/Physical Exam: Temp Pulse Resp BP Pulse Ox 97.9 F 67 18 189/79 H 99 03/26/20 04:00 03/26/20 04:00 03/26/20 04:00 03/26/20 04:00 03/26/20 04:00 General: Alert, In no apparent distress, Oriented x3, Cooperative HEENT: Atraumatic Neck: Supple Respiratory: Clear to auscultation bilaterally, Normal air movement Cardiovascular: Normal pulses, Regular rate/rhythm Gastrointestinal: Normal bowel sounds, Soft and benign, Non-distended, No tender ness, No masses, No rebound, No guarding Musculoskeletal: No erythema, No tenderness, No warmth Integumentary: No tenderness/swelling, No erythema, No warmth, No cyanosis Neurological: Normal speech, Normal strength at 5/5 x4 extr, Normal tone, Normal affect Laboratory Data at Discharge: WBC 6.9 K/uL (4.3-10.9) D 03/26/20 03:51 Hgb 12.3 g/dL (12.0-15.0) 03/26/20 03:51 Hct 35.9 % (36.0-45.0) L 03/26/20 03:51 Plt Count 177 K/uL (152-406) 03/26/20 03:51 PT 11.1 SECONDS (9.5-12.5) 03/25/20 07:47 INR 0.94 03/25/20 07:47 Sodium 141 mmol/L (136-145) 03/26/20 03:51 Potassium 4.3 mmol/L (3.5-5.1) 03/26/20 03:51 BUN 15 mg/dL (7-18) 03/26/20 03:51 Creatinine 1.03 mg/dL (0.55-1.3) 03/26/20 03:51 Glucose 103 mg/dL (74-106) 03/26/20 03:51 Magnesium 2.5 mg/dL (1.8-2.4) H 03/26/20 03:51 Total Bilirubin 0.5 mg/dL (0.2-1.0) 03/25/20 07:47 AST 20 U/L (15-37) 03/25/20 07:47 ALT 26 U/L (12-78) 03/25/20 07:47 Alkaline Phosphatase 82 U/L (45-117) 03/25/20 07:47 Troponin I < 0.02 ng/mL (0.0-0.045) 03/25/20 21:51 Triglycerides 119 mg/dL (<150) 03/26/20 03:51 Cholesterol 178 mg/dL (<200) 03/26/20 03:51 HDL Cholesterol 53 mg/dL (40-60) 03/26/20 03:51 Cholesterol/HDL Ratio 3.36 03/26/20 03:51 Home Medications: Calcium Carbonate [Calcium] 2 tab PO DAILY 03/25/20 Multivitamin [Multivitamins] 1 cap PO DAILY 03/25/20 Patient Discharge Instructions: 1. Recommend follow up with PCP in 1 week to follow up this hospitalization. 2. Patient presented with chest pain. Cardiac enzymes unremarkable. No significant EKG changes noted. Patient seen by Cardiology. Patient had cardiac stress test which showed no stress-induced ischemia. Normal ejection fraction noted. Chest pain likely atypical and pleuritic in nature. At discharge she may take ibuprofen 400 mg 3 times a day as needed for pain. Patient may also take Tylenol as needed for pain. Recommend follow up with cardiology if chest pain persists. 3. Patient likely with underlying GERD. Patient may take over the counter Prilosec or Pepcid. If patient with increased heartburn recommend follow up with GI to further monitor and address. 4. Mild renal insufficiency noted. Likely mild dehydration. Encourage oral intake. Recommend to recheck lab-BMP in 1-2 weeks to monitor her progress. Diet: AHA Activity: Ad bryan Time spent managing pt's care (in minutes): 55
[2020-03-26 13:23] VITALS: BP 109/51; TEMP 97.1
--- NOTE | 2020-03-27 08:51 | ECHO ---
HEIGHT: 5 ft 8 in WEIGHT: 188 lb 0 oz DATE OF STUDY: 03/26/[address]: Butch Galindo DO 2-DIMENSIONAL: YES M.MODE: YES DOPPLER: YES COLOR FLOW: YES TDS: NO PORTABLE: NO DEFINITY: NO BUBBLE STUDY: NO DIAGNOSIS: CHEST PAIN CARDIAC HISTORY: CATHERIZATION: NO SURGERY: NO PROSTHETIC VALVE: NO PACEMAKER: NO MEASUREMENTS (cm) DIASTOLIC (NORMALS) SYSTOLIC (NORMALS) IVSd 0.9 (0.6-1.2) LA Diam 3.0 (1.9-4.0) LVEF 65% LVIDd 4.5 (3.5-5.7) LVIDs 2.9 (2.0-3.5) %FS 36% LVPWd 1.0 (0.6-1.2) Ao Diam 2.7 (2.0-3.7) 2 DIMENSIONAL ASSESSMENT: RIGHT ATRIUM: NORMAL LEFT ATRIUM: NORMAL RIGHT VENTRICLE: NORMAL LEFT VENTRICLE: NORMAL TRICUSPID VALVE: NORMAL MITRAL VALVE: NORMAL PULMONIC VALVE: NORMAL AORTIC VALVE: NORMAL PERICARDIAL EFFUSION: NONE AORTIC ROOT: NORMAL LEFT VENTRICULAR WALL MOTION: NORMAL. DOPPLER/COLOR FLOW: NORMAL. COMMENTS: NORMAL LEFT VENTRICULAR EJECTION FRACTION 55-60%. NORMAL WALL MOTION. TECHNOLOGIST: RAIZA DE LA CRUZ
--- NOTE | 2020-03-27 08:54 | TREADPHA ---
DX: CHEST PAIN Date of Study: 03/26/2020 Ht: 5' 8 " Wt: 188 lb 0 oz Consulting Physician: JORDAN MEDICATIONS: TYLENOL, XANAX, ASPIRIN, LIPITOR, LOVENOX, ZOFRAN HISTORY: 64 YEAR OLD FEMALE PATIENT DENIES MEDICAL HISTORY OR HOME MEDICATIONS. ADMITTED FOR MIDSTERNAL NON RADIATING CHEST PAIN. DENIES PAIN AT TIME OF TESTING PHYSICIAL EXAMINATION: RESTING B.P.: 107/61 RESTING H.R.: 68 RESTING EKG: NORMAL SINUS RHYTHM AT 68, NORMAL. PROTOCOL: LEXISCAN EXERCISE TIME: 3:30 B.P. AT PEAK STRESS: 98/55 IMPRESSION: LEXISCAN STRESS TEST PERFORMED. CARDIOLITE INJECTED PER PROTOCOL. NO SUPRA VENTRICULAR TACHYCARDIA, NO VENTRICULAR TACHYCARDIA, NO ARRHYTHMIA NOTED. PATIENT DENIED CHEST PAIN, RESPIRATIONS EVEN NONLABORED. PATIENT TOLERATED WELL. SEE NUCLEAR MEDICINE REPORT. NO CHANGES ON EKG WITH LEXISCAN.
== END 2020-03-26 11:51 | disposition home or self-care (01) ==
LOC: ER 07:06 → ERHOLD 10:09 → 2ND 12:47
PROVIDERS: ADMIT Family Medicine; ATTEND Family Medicine
DX: R07.89 Other chest pain (principal); N28.9 Disorder of kidney and ureter, unspecified; R12 Heartburn; Z91.013 Allergy to seafood; Z82.49 Family history of ischemic heart disease and other diseases of the circulatory system; Z83.3 Family history of diabetes mellitus
CPT/HCPCS: 93005; 93017; 93306; 85025 ×2; 80048 ×2; 36415; 83735 ×2; 82550 ×2; 85610; 80061; 80076; 84443; 84484 ×3; 82553 ×2; 84439; 83880; 71045; 78452; 96375; 96374; 99285; U0002; J1650; J2270 ×2; J2785; J7040; J2405; A9500; G0378 ×3

== ENCOUNTER 2023-01-07 07:37 | Emergency (ER) | payer OTHER ==
--- OUTSIDE RECORDS SUMMARY | 2023-01-07 07:40 | XMS REPORT | Continuity of Care Document ---
:1955 Author Organization [facility] t Address [address] [place] [address] [address] [place] [address] Care Team Providers Name Role Phone ARACELIS PETER Primary Care Physician Unavailable DELIA RICE Attending Clinician Unavailable Aracelis Peter Attending Clinician Kimmy Hoyt MA Attending Clinician Unavailable Doctor Unassigned, [place] Attending Clinician Unavailable Delia Rice MD Attending Clinician Payers Payer Name Policy Type Policy Number Effective Date Expiration Date S gauri [employer] [id number] 2018 OUT OF NETWORK 00:00:00 Problems Condition Condition Condition Status Onset Resolution Last Treating Co mments Source Name Details Category Date Date Treatment Clinician Date Well woman Well woman Disease Active U nivers exam with exam with 7-13 ity of routine routine 00:00: [place] [facility] gynecologi 00 Me dical palma exam palma exam Branch Allergies, Adverse Reactions, Alerts Allergy Allergy Status Severity Reaction(s) Onset Inactive Treating Comm ents Source Name Type Date Date Clinician NO KNOWN Drug Active Univers ALLERGIE Class ity of S [facility] Social History Social Habit Start Date Stop Date Quantity Comments Source Alcohol intake 2021-02-19 2021-02-19 Current drinker Unive rsity of 00:00:00 00:00:00 of alcohol [facility] [place] Tobacco use and 2021-02-12 2021-02-12 Smokeless tobacco Un iversity of exposure 00:00:00 00:00:00 non-user [facility] Sex Ass[birth year] Universit y of 00:00:00 00:00:00 [facility] Smoking Status Start Date Stop Date Source Never smoked tobacco [facility] Medications Ordered Filled Start Stop Current Ordering Indication Dosage Frequency Signature Comments Components Source Medication Medication Date Date Medication? Clinician (SIG) Name Name sulfamethox 0 Yes [id number] 1{tbl} Take 1 Univers azole-trime 7-14 tablet by ity of thoprim 00:00: mouth 2 [place] (BACTRIM 00 (two) Medical DS) 800-160 times Branch mg per daily. tablet sulfamethox 2020-0 Yes [id number] 1{tbl} Take 1 Univers azole-trime 7-14 tablet by ity of thoprim 00:00: mouth 2 [place] (BACTRIM 00 (two) Medical DS) 800-160 times Branch mg per daily. tablet sulfamethox 2020-0 Yes [id number] 1{tbl} Take 1 Univers azole-trime 7-14 tablet by ity of thoprim 00:00: mouth 2 [place] (BACTRIM 00 (two) Medical DS) 800-160 times Branch mg per daily. tablet sulfamethox 2020-0 Yes [id number] 1{tbl} Take 1 Univers azole-trime 7-14 tablet by ity of thoprim 00:00: mouth 2 [place] (BACTRIM 00 (two) Medical DS) 800-160 times Branch mg per daily. tablet sulfamethox 2020-0 Yes [id number] 1{tbl} Take 1 Univers azole-trime 7-14 tablet by ity of thoprim 00:00: mouth 2 [place] (BACTRIM 00 (two) Medical DS) 800-160 times Branch mg per daily. tablet sulfamethox 2020-0 Yes [id number] 1{tbl} Take 1 Univers azole-trime 7-14 tablet by ity of thoprim 00:00: mouth 2 [place] (BACTRIM 00 (two) Medical DS) 800-160 times Branch mg per daily. tablet sulfamethox 2020-0 2020- No [id number] 1{tbl} Take 1 Univers azole-trime 7-10 07-14 tablet by it y of thoprim 00:00: 00:00 mouth 2 [place] (BACTRIM 00 :00 (two) Medical DS) 800-160 times Branch mg per daily for tablet 3 days. Procedures Procedure Date / Time Performed Performing Clinician Javed jackson EXTERNAL PROVIDER 2021-08-05 06:01:00 Doctor Unassigned, No Univ ersity of [place] RECORDS Name Medical Branch EXTERNAL PROVIDER 2021-04-25 05:01:00 Doctor Unassigned, No Univ [facility] [place] RECORDS Name Medical Branch CULTURE, URINE, 2021-03-12 12:57:00 Delia Rice o f [place] ROUTINE-Q Medical [place] EXTERNAL MAMMOGRAM 2021-02-26 00:00:00 Doctor Unassigned, No Uni versity [facility] Encounters Start End Encounter Admission Attending Care Care Encounter Source Date/Time Date/Time Type Type Clinicians Facility Department ID 2022-03-06 2022-03-06 Outpatient R DELIA RICE [facility] [id number] Univers 09:00:00 09:00:00 ity of [facility] 2022-02-27 2022-02-27 Telephone CHANTEL Peter [id number] Univers 00:00:00 00:00:00 Aracelis [place] [id number] it [id number] [id number] [id number] [place] 2021-08-21 2021-08-21 Case CHANTEL Hoyt [id number] Univers 00:00:00 00:00:00 Management Kimmy [place] [id number] [id number] [id number] [place] [id number] [place] 2021-08-05 2021-08-05 Orders Doctor WOODALL [id number] Univers 00:00:00 00:00:00 Only Unassigned, BAKARI [id number] ity of [place] [facility] [id number] Jason as [id number] [address] 2021-04-25 2021-04-25 Orders Doctor TALISHA [id number] Univers 00:00:00 00:00:00 Only Unassigned, BAKARI [id number] ity of [place] [facility] [id number] Jason as [phone] [facility] 009 [place] 2021-03-12 2021-03-12 Orders Delia Rice TALISHA [id number] Univers 00:00:00 00:00:00 Only BAKARI [id number] it y of [facility] [id number] Jason as [phone] [facility] 009 [place] 2021-02-16 2021-02-16 Case Delia Rice [facility] [id number] Univers 00:00:00 00:00:00 Management [place] [id number] ity [facility] [id number] [phone] [facility] 083 Branch 2021-02-12 2021-02-12 Outpatient R DELIA RICE [facility] [id number] [facility] 15:30:00 15:30:00 [facility] Results Test Description Test Time Test Comments Results Result Comments Source CULTURE, URINE, ROUTINE-Q 2021-03-14 00:00:00 Test Item Value Reference Range Interpretation Comme nts CULTURE-Q (test code = SEE NOTE ?CUL TURE, URINE, ROUTINE ? 630-4) ?Micro Number: ? ? ?[id number] ?Test Status: ? ? ? Final ?Specimen Sourc e: ? Urine, clean catch ?Sp ecimen Quality: ?Adequ ate ?Result: ?Growth of mixed pascual was isola tripp, suggesting ? probable cont amination. No further testing will ? be performed. If clinically reza cated, ? rec ollection using a method to minimize ? contamination, with prompt transfer to i ne ? Culture Transport Tube, is recomm ended. LORRAINE (test code = LORRAINE) PERFORMED BY [employer] [facility]; [address] [place] [address]; VALARIE THOMAS MD [facility]
[2023-01-07 08:24] LABS: Absolute Lymphocytes (CBC) 1.2 K/uL (0.7-4.9); Lymphocytes % 12.6 % (15.3-44.8); MCV 90.7 fL (80-100); MPV 8.7 fL (7.6-11.3); RBC Red Blood Cell Count 4.63 M/uL (3.86-4.86)
[2023-01-07] MEDS ORDERED: CIPROFLOXACIN 400mg IV 400 MG/200 ML BAG IV ONE (08:26)
[2023-01-07] MEDS ORDERED: NA CHLORIDE 0.9% 1,000 ML ONE (08:26)
[2023-01-07] MEDS ORDERED: METRONIDAZOLE 500mg IVPB 500 MG/100 ML BAG IV ONE (08:26)
[2023-01-07 08:30] LABS: Specific Gravity 1.023 (1.005-1.030); Urine Bacteria None Seen /HPF (<20); Urine Bilirubin NEGATIVE (Negative); Urine Blood Trace (Negative); Urine Clarity Clear (Clear); Urine Color Yellow (Yellow); Urine Glucose NEGATIVE (Negative); Urine Mucus Slight /HPF (None Seen); Urine Protein TRACE (Negative); Urine RBC <5 /HPF (None Seen); Urine Urobilinogen Normal (Normal); Urine pH 5.5 (5.0-7.0)
[2023-01-07 08:38] LABS: Albumin 4.1 g/dL (3.4-5.0); Bilirubin Total 0.9 mg/dL (0.2-1.0); Potassium 4.1 mEq/L (3.5-5.1); Protein, Total 7.8 g/dL (6.4-8.2)
--- NOTE | 2023-01-07 09:12 | RAD REPORT ---
EXAM DESCRIPTION: CT - Abdomen Pelvis W Contrast - 01/07/2023 8:59 am CLINICAL HISTORY: Abdominal pain COMPARISON: none. TECHNIQUE: Computed axial tomography of the abdomen pelvis was obtained. Seventy cc Isovue-300 was a dministered intravenously. Oral contrast was not requested which limits evaluation of bowel and appen ayaka All CT scans are performed using dose optimization technique as appropriate and may include automated exposure control or mA/KV adjustment according to patient size. FINDINGS: The liver, spleen, pancreas, adrenal and kidneys appear unremarkable. Moderate stranding adjacent to the proximal sigmoid colon with extraluminal air bubble and wall thick ening. Small amount of ill-defined fluid surrounds the colon. Several diverticula extend from the col on. 1.4 centimeter low-density structure abuts the sigmoid colon probably a small abscess rather than an ovarian cyst. No pneumoperitoneum. Cholelithiasis without gallbladder wall thickening IMPRESSION: Moderate sigmoid diverticulitis. Micro perforation with extraluminal air bubble. 1.4 mily timeter abscess abuts sigmoid colon. Cholelithiasis without evidence cholecystitis
--- NOTE | 2023-01-07 09:35 | ER ---
Nurse's Notes [facility] [place] Name: Ladonna Campos Age: 67 yrs Sex: Female : 1955 Arrival Date: 01/07/2023 Time: 07:37 Bed 11 Private MD: Harvey Peter Diagnosis: Diverticulitis of large intestine with perforation and abscess without bleeding Presentation: 01/07 07:45 Chief complaint: Patient states: since Thursday I've had LLQ pain and diarrhea, the iw diarrhea has resolved but the pain persists. Coronavirus screen: At this time, the client does not indicate any symptoms associated with coronavirus-19. Ebola Screen: Patient negative for fever greater than or equal to 101.5 degrees Fahrenheit, and additional compatible Ebola Virus Disease symptoms Patient denies exposure to infectious person. Patient denies travel to an Ebola-affected area in the 21 days before illness onset. No symptoms or risks identified at this time. 07:45 Method Of Arrival: Ambulatory iw 07:45 Acuity: FAITH 3 iw 07:47 Initial Sepsis Screen: Does the patient meet any 2 criteria? No. Patient's initial iw sepsis screen is negative. Does the patient have a suspected source of infection? No. Patient's initial sepsis screen is negative. Risk Assessment: Do you want to hurt yourself or someone else? Patient reports no desire to harm self or others. Onset of symptoms was January 05, 2023. Historical: - Allergies: 07:46 LOBSTER; iw 07:46 NKDA; iw - Home Meds: 07:46 None [Active]; iw - PMHx: 07:46 None; iw - PSHx: 07:46 section; iw - Immunization history:: Adult Immunizations. - Family history:: not pertinent. - Social history:: Smoking status: Patient denies any tobacco usage or history of. - Hospitalizations: : No recent hospitalization is reported. Screenin:50 [facility] ED Fall Risk Assessment (Adult) History of falling in the last 3 months, iw including since admission No falls in past 3 months (0 pts). Abuse screen: Denies threats or abuse. Denies injuries from another. Nutritional screening: No deficits noted. Tuberculosis screening: No symptoms or risk factors identified. Assessment: 07:49 General: Appears in no apparent distress. Behavior is calm, cooperative. Pain: iw Complains of pain in left femoral area and left inguinal area. Neuro: Level of Consciousness is awake, alert, obeys commands, Oriented to person, place, time, situation, Moves all extremities. Full function. Cardiovascular: Patient's skin is warm and dry. Respiratory: Respiratory effort is even, unlabored, Respiratory pattern is regular, symmetrical. GI: Bowel sounds Abd is soft X 4 quads Abdomen is tender to palpation in left lower quadrant. Derm: Skin is intact, is healthy with good turgor. Musculoskeletal: Range of motion: intact in all extremities. Vital Signs: 07:46 BP 123 / 70; Pulse 96; Resp 16; Temp 98.1; Pulse Ox 97% on R/A; iw ED Course: 01/06 13:14 Arm band placed on. iw 01/07 07:40 Patient arrived in ED. im 07:41 Harvey Peter MD is Private Physician. im 07:42 Jose D Diane MD is Attending Physician. rn 07:46 Triage completed. iw 07:50 Patient has correct armband on for positive identification. iw 07:55 Brenda Joiner, RN is Primary Nurse. iw 08:12 Inserted saline lock: 20 gauge in right antecubital area, using aseptic technique. zm Blood collected. 08:12 CBC with Diff Sent. zm 08:12 CMP Sent. zm 08:12 Lipase Sent. zm 08:12 Urinalysis w/ reflexes Sent. zm 09:01 CT Abd/Pelvis - IV Contrast Only In Process Unspecified. EDMS 09:35 Harvey Peter MD is Hospitalizing Provider. rn 13:14 No provider procedures requiring assistance completed. Patient transferred, IV remains iw in place. Administered Medications: 08:24 Drug: NS 0.9% IV 1000 ml Route: IV; Rate: 1 bolus; Site: right antecubital; iw 09:30 Follow up: IV Status: Completed infusion iw 08:24 Drug: metroNIDAZOLE IVPB 500 mg Volume: 100 ml; Route: IVPB; Rate: 200 ml/hr; Infused iw Over: 30 mins; Site: right antecubital; 09:00 Follow up: IV Status: Completed infusion iw 09:14 Drug: Ciprofloxacin IVPB 400 mg Volume: 200 ml; Route: IVPB; Infused Over: 60 mins; iw Site: right antecubital; 10:15 Follow up: IV Status: Completed infusion iw 11:27 Drug: morphine IVP or IV 2 mg Route: IVP; Infused Over: 4 mins; Site: right antecubital;iw 11:50 Follow up: Response: No adverse reaction iw 11:27 Drug: Ondansetron IVP 4 mg Route: IVP; Site: right antecubital; iw 11:50 Follow up: Response: No adverse reaction iw Medication: 07:50 VIS not applicable for this client. iw Outcome: 09:35 Decision to Hospitalize by Provider. rn 10:45 ER care complete, transfer ordered by . rn 13:14 Transferred by ground EMS Transfer form completed. X-rays sent w/ patient. iw 13:14 Condition: stable 13:14 Discharge instructions given to family, Instructed on the need for transfer. 13:15 Patient left the ED. zm Signatures: Dispatcher [employer] Brenda Sheikh RN RN Jose D Diane MD MD rn Martinez, Zaina zm Mendoza, Itzel im Corrections: (The following items were deleted from the chart) 07:47 07:46 Resp 16bpm; Pulse Ox 97% RA; Temp 98.1F; iw iw
--- NOTE | 2023-01-07 09:35 | EDPHYS ---
Physician Documentation [facility] Name: Ladonna Campos Age: 67 yrs Sex: Female : 1955 Arrival Date: 01/07/2023 Time: 07:37 Bed 11 Private MD: Harvey Peter ED Physician Jose D Diane HPI: 01/07 08:17 This 67 yrs old Female presents to ER via Ambulatory with complaints of Abdominal Pain. rn 08:17 The patient presents with abdominal pain in the left lower quadrant. Onset: The rn symptoms/episode began/occurred 3 day(s) ago. The symptoms do not radiate. Associated signs and symptoms: Pertinent positives: diarrhea, Pertinent negatives: nausea and vomiting, blood in stools, fever, hematuria. The symptoms are described as intermittent, sharp. Modifying factors: The symptoms are alleviated by nothing, the symptoms are aggravated by touching the area. Severity of pain: At its worst the pain was moderate in the emergency department the pain is unchanged. The patient has not experienced similar symptoms in the past. The patient has not recently seen a physician. Historical: - Allergies: 07:46 LOBSTER; iw 07:46 NKDA; iw - Home Meds: 07:46 None [Active]; iw - PMHx: 07:46 None; iw - PSHx: 07:46 section; iw - Immunization history:: Adult Immunizations. - Family history:: not pertinent. - Social history:: Smoking status: Patient denies any tobacco usage or history of. - Hospitalizations: : No recent hospitalization is reported. ROS: 08:22 Constitutional: Negative for fever, chills, and weight loss, Cardiovascular: Negative rn for chest pain, palpitations, and edema, Respiratory: Negative for shortness of breath, cough, wheezing, and pleuritic chest pain, Abdomen/GI: + LLQ abd pain with diarrhea Back: Negative for injury and pain, : Negative for injury, bleeding, discharge, and swelling, MS/Extremity: Negative for injury and deformity, Neuro: Negative for headache, weakness, numbness, tingling, and seizure. Exam: 08:22 Constitutional: This is a well developed, well nourished patient who is awake, alert, rn and in no acute distress. Head/Face: Normocephalic, atraumatic. Cardiovascular: Regular rate and rhythm. No pulse deficits. Respiratory: No increased work of breathing, no retractions or nasal flaring. Abdomen/GI: soft, + LLQ tenderness with guarding, no rebound Skin: Warm, dry MS/ Extremity: Pulses equal, no cyanosis. Neuro: Awake and alert, GCS 15 Vital Signs: 07:46 BP 123 / 70; Pulse 96; Resp 16; Temp 98.1; Pulse Ox 97% on R/A; iw MDM: 07:42 Patient medically screened. rn 09:34 Differential diagnosis: diverticulitis, non-specific abd pain, Ureterolithiasis, rn urinary tract infection. Data reviewed: vital signs, nurses notes, lab test result(s), radiologic studies, CT scan, and as a result, I will admit patient. Consideration of Admission/Observation Patient was admitted/placed on observation. Escalation of care including admission/observation considered. Counseling: I had a detailed discussion with the patient and/or guardian regarding: the historical points, exam findings, and any diagnostic results supporting the discharge/admit diagnosis, lab results, radiology results, the need for further work-up and treatment in the hospital. Response to treatment: the patient's symptoms have mildly improved after treatment, and as a result, I will admit patient. ED course: Dr. Levy in surgery, will wait licensing registration examiner back for final disposition given microperforation.. 10:44 ED course: Dr. Levy consulted, requests transfer for colorectal surgeon, states rn might do surgery during this admission and has abscess. . 01/07 07:53 Order name: CBC with Diff; Complete Time: 08:36 rn 01/07 07:53 Order name: CMP; Complete Time: 08:56 rn 01/07 07:53 Order name: Lipase; Complete Time: 08:56 rn 01/07 07:53 Order name: Urinalysis w/ reflexes; Complete Time: 08:36 rn 01/07 07:53 Order name: CT Abd/Pelvis - IV Contrast Only; Complete Time: 09:14 rn 01/07 07:53 Order name: IV Saline Lock; Complete Time: 08:12 rn 01/07 07:53 Order name: Labs collected and sent; Complete Time: 08:12 rn Administered Medications: 08:24 Drug: NS 0.9% IV 1000 ml Route: IV; Rate: 1 bolus; Site: right antecubital; iw 09:30 Follow up: IV Status: Completed infusion iw 08:24 Drug: metroNIDAZOLE IVPB 500 mg Volume: 100 ml; Route: IVPB; Rate: 200 ml/hr; Infused iw Over: 30 mins; Site: right antecubital; 09:00 Follow up: IV Status: Completed infusion iw 09:14 Drug: Ciprofloxacin IVPB 400 mg Volume: 200 ml; Route: IVPB; Infused Over: 60 mins; iw Site: right antecubital; 10:15 Follow up: IV Status: Completed infusion iw 11:27 Drug: morphine IVP or IV 2 mg Route: IVP; Infused Over: 4 mins; Site: right antecubital;iw 11:50 Follow up: Response: No adverse reaction iw 11:27 Drug: Ondansetron IVP 4 mg Route: IVP; Site: right antecubital; iw 11:50 Follow up: Response: No adverse reaction iw Disposition Summary: 01/07/23 10:45 Transfer Ordered Transfer Location: [facility] rn Reason: Higher level of care rn Condition: Stable(01/07/23 10:45) rn Problem: new(01/07/23 10:45) rn Symptoms: have improved(01/07/23 10:45) rn Accepting Physician: (01/07/23 13:15) lexie Diagnosis - Diverticulitis of large intestine with perforation and abscess without rn bleeding(01/07/23 10:45) Forms: - Medication Reconciliation Form rn - SBAR form rn Signatures: Dispatcher [employer] Brenda Sheikh RN RN iw Nieto, Roman, MD MD rn Martinez, Zaina zm Corrections: (The following items were deleted from the chart) 10:44 09:35 Inpatient Admission rn rn 10:44 09:35 Harvey Peter rn rn 10:44 09:35 Telemetry/MedSurg (Inpatient) rn rn 10:44 09:35 Stable rn rn 10:44 09:35 new rn rn 10:44 09:35 have improved rn rn 10:44 09:35 Standard rn rn 10:44 09:35 rn rn 10:44 09:35 Diverticulitis of large intestine with perforation and abscess without bleeding rnrn 13:15 10:45 Dr. alfa owen
[2023-01-07] MEDS ORDERED: ONDANSETRON 4 MG/2 ML VIAL ONE (11:28)
[2023-01-07] MEDS ORDERED: MORPHINE 2 MG/ML SYR ONE (11:28)
[2023-01-07 13:46] VITALS: BP 123/70; TEMP 98.1; O2SAT 97
== END 2023-01-07 13:15 | disposition short-term general hospital (02) ==
LOC: ER 07:37
DX: K57.20 Diverticulitis of large intestine with perforation and abscess without bleeding (principal); Z91.013 Allergy to seafood
CPT/HCPCS: 96365; 96367; 85025; 81001; 36415; 83690; 80053; 74177; 96375; 99285; Q9967; J2270; J2405; J0744; J7030